=== PATIENT | male | born 1950 | race Caucasian/White ===

== ENCOUNTER 2019-02-15 07:08 | Day surgery (SDC) | payer MEDICARE, BC ==
[~2019-02-15 07:08] MED LIST: Lactated Ringers 1,000 ML IV SCH; Lidocaine 1%/Sod Bicarbonate in NS 8.4% 1 ML Syringe IDERM PRN; Sodium Chloride 0.9% 10 ML Syringe FLUSH PRN
[2019-02-15] MEDS ORDERED: Propofol 200 MG/20 ML SDV ONE ×4 (07:09→09:25)
[2019-02-15] MEDS ORDERED: Lidocaine 1% 4 ML ONE (07:09)
--- NOTE | 2019-02-15 08:12 | PCM.PREANE ---
Preanesthetic Assessment - Procedure Proposed Procedure: Colonoscopy - Anesthesia/Transfusion/Family Hx Anesthesia History: Prior Anesthesia Without Reaction Family History of Anesthesia Reaction: No - Review of Systems General: No Symptoms Pulmonary: Cough (Occasional, mornings. ), Other (COPD, Lung cancer (Surgery scheduled in [place] on February 24) Recently quite smoking, but does admit to having one this morning at 0630. ) Cardiovascular: No Symptoms Gastrointestinal: No Symptoms Neurological: No Symptoms Other: Reports: None - Physical Assessment NPO Status Date: 02/15/19 NPO Status Time: 04:00 Vital Signs: Last Vital Signs Temp 36.6 C 02/15/19 07:25 Pulse 92 02/15/19 07:25 Resp 16 02/15/19 07:25 BP 125/85 02/15/19 07:25 Pulse Ox 97 02/15/19 07:25 Height: 1.73 m Weight: 72.121 kg ASA Class: 3 Mental Status: Alert & Oriented x3 Airway Class: Mallampati = 2 Dentition: Reports: Broken Tooth/Teeth, Missing Tooth/Teeth, Caries Thyro-Mental Finger Breadths: 3 Mouth Opening Finger Breadths: 3 ROM/Head Extension: Full Lungs: Clear to Auscultation, Normal Respiratory Effort, Decreased Breath Sounds (Right side) Cardiovascular: Regular Rate, Regular Rhythm - Allergies Allergies/Adverse Reactions: Allergies Allergy/AdvReac Type Severity Reaction Status Date / Time No Known Allergies Allergy Verified 02/12/19 15:31 - Acknowledgements Anesthesia Type Planned: MAC Pt an Appropriate Candidate for the Planned Anesthesia: Yes Alternatives and Risks of Anesthesia Discussed w Pt/Guardian: Yes Pt/Guardian Understands and Agrees with Anesthesia Plan: Yes PreAnesthesia Questionnaire Cardiovascular History: Reports: None Respiratory History: Reports: COPD Gastrointestinal History: Reports: None Genitourinary History: Reports: Other (See Below) Other Genitourinary History: prostate neoplasm CLINICAL SPECIALIST VASCULAR History: Reports: None Musculoskeletal History: Reports: None Neurological History: Reports: None Psychiatric History: Reports: None Endocrine/Metabolic History: Reports: None Hematologic History: Reports: None Immunologic History: Reports: None Oncologic (Cancer) History: Reports: Lung, Prostate Dermatologic History: Reports: None - Past Surgical History Head Surgeries/Procedures: Reports: None HEENT Surgical History: Reports: Tonsillectomy Cardiovascular Surgical History: Reports: None Respiratory Surgical History: Reports: None GI Surgical History: Reports: Appendectomy Male Surgical History: Reports: Prostatectomy Endocrine Surgical History: Reports: None Neurological Surgical History: Reports: None Musculoskeletal Surgical History: Reports: None Oncologic Surgical History: Reports: None Dermatological Surgical History: Reports: None - SUBSTANCE USE Smoking Status *Q: Current Every Day Smoker Recreational Drug Use History: No - HOME MEDS Home Medications: Home Meds Albuterol [Proventil Neb Soln] 1 dose INH QID PRN 02/12/19 [History] Furosemide 40 mg PO BID 02/12/19 [History] Glycopyrrolate/Formoterol Fum [Bevespi Aerosphere Inhaler] 1 puff INH DAILY [History] Potassium Chloride 20 meq PO DAILY 02/12/19 [History] Potassium Chloride [Klor-Con M20] 40 meq PO QAM 02/12/19 [History] - CURRENT (IN HOUSE) MEDS Current Meds: Current Medications Lactated Ringer's (Ringers, Lactated) 1,000 mls @ 125 mls/hr IV ASDIRECTED ARACELI Stop: 02/15/19 23:00 Lidocaine/Sodium Bicarbonate (Buffered Lidocaine 1% In Ns 8.4%) 0.25 ml IDERM ONETIME PRN PRN Reason: Prior to IV Start Stop: 02/15/19 18:00 Sodium Chloride (Saline Flush) 10 ml FLUSH ASDIRECTED PRN PRN Reason: Keep Vein Open Stop: 02/15/19 18:00 Discontinued Medications Lidocaine HCl (Xylocaine-Mpf 1%) Confirm Administered Dose 4 mls @ as directed .ROUTE .STK-MED ONE Stop: 02/15/19 07:10 Propofol (Diprivan 20 Ml) Confirm Administered Dose 200 mg .ROUTE .STK-MED ONE Stop: 02/15/19 07:10
--- NOTE | 2019-02-15 09:52 | PCM.PRNOTE ---
- Free Text/Narrative Note: Date: 02/15/2019 Procedure: diagnostic colonoscopy Endoscopist: Jamie Martinez MD Findings: several polypoid lesions identified and biopsied- the lesion in question on CT appeared to be an irregular shaped 2.5 cm pedunculated polyp with surrounding small sessile polypoid lesions. Scattered diverticular disease noted. Detailed Report: The patient was taken to the endoscopy suite and placed in left lateral decubitus position. Monitored anesthesia was initiated, and timeout performed. Visual inspection of the anus was normal. Digital rectal exam was unremarkable. The colonoscope was advanced all the way to the cecum. The prep was excellent. On slow withdrawal of the scope, a few polypoid lesions were identified and biopsied. Larger pedunculated lesions were taken with a hot snare. Smaller, sessile lesions were biopsied using the jumbo forceps. In total, 7 specimens were obtained. In the sigmoid colon, 2 larger pedunculated lesions were identified and snare biopsied. The lesion noted on prior CT scan at the rectosigmoid junction was identified, measuring about 2.5 cm in diameter. Was taken in piecemeal fashion using a snare. The base of the lesion was cauterized. Surrounding satellite lesions were noted, subcentimeter in dimension, with sessile appearance. Letter diverticular disease was noted throughout the colon. No significant hemorrhoidal disease. The patient tolerated the procedure well. Jamie Martinez MD General Surgery
--- NOTE | 2019-02-15 09:54 | PCM48HPAN ---
Post Anesthesia Note - EVALUATION WITHIN 48HRS OF ANESTHETIC Vital Signs in Normal Range: Yes Patient Participated in Evaluation: Yes Respiratory Function Stable: Yes Airway Patent: Yes Cardiovascular Function Stable: Yes Hydration Status Stable: Yes Pain Control Satisfactory: Yes Nausea and Vomiting Control Satisfactory: Yes Mental Status Recovered: Yes Vital Signs: Last Vital Signs Temp 36.6 C 02/15/19 07:25 Pulse 92 02/15/19 07:25 Resp 16 02/15/19 07:25 BP 125/85 02/15/19 07:25 Pulse Ox 97 02/15/19 07:25
== END 2019-02-15 10:35 | disposition home or self-care (01) ==
LOC: JD.SDS 07:08
PROVIDERS: ATTEND Surgery
DX: D12.5 Benign neoplasm of sigmoid colon (principal); D12.7 Benign neoplasm of rectosigmoid junction; K63.5 Polyp of colon; J44.9 Chronic obstructive pulmonary disease, unspecified; Z79.899 Other long term (current) drug therapy; Z90.49 Acquired absence of other specified parts of digestive tract; Z87.891 Personal history of nicotine dependence
CPT/HCPCS: 45380; 45385; J2001; J2704; J7120; 00811

== ENCOUNTER 2022-08-21 09:33 | Day surgery (SDC) | payer MEDICARE, BC ==
[2022-08-21] MEDS ORDERED: Sodium Chloride 0.9% 10 ML Syringe FLUSH PRN (10:21)
[2022-08-21] MEDS ORDERED: Propofol 200 MG/20 ML SDV ONE ×2 (10:24→10:58)
[2022-08-21] MEDS ORDERED: Lidocaine 1% 2 ML ONE (10:24)
[2022-08-21] MEDS ORDERED: fentaNYL 100 MCG/2 ML SDV ONE (10:24)
[2022-08-21] MEDS ORDERED: Midazolam 1 MG/ML 2 ML SDV ONE (10:25)
[2022-08-21] MEDS ORDERED: Lactated Ringers 1,000 ML IV SCH (10:30)
[2022-08-21] MEDS ORDERED: Phenylephrine 1% 10 MG/ML SDV ONE (11:16)
[2022-08-21] MEDS ORDERED: Sodium Chloride 0.9% 10 ML Syringe FLUSH SCH (21:00)
== END 2022-08-21 12:55 | disposition home or self-care (01) ==
LOC: JD.SDS 09:33
PROVIDERS: ATTEND Surgery
DX: K62.1 Rectal polyp (principal); K29.50 Unspecified chronic gastritis without bleeding; K31.A0 Gastric intestinal metaplasia, unspecified; K57.30 Diverticulosis of large intestine without perforation or abscess without bleeding; K63.5 Polyp of colon; K22.70 Barrett's esophagus without dysplasia; K29.80 Duodenitis without bleeding; K64.9 Unspecified hemorrhoids; K44.9 Diaphragmatic hernia without obstruction or gangrene; D64.9 Anemia, unspecified; F17.210 Nicotine dependence, cigarettes, uncomplicated; F41.1 Generalized anxiety disorder; E87.1 Hypo-osmolality and hyponatremia; J44.9 Chronic obstructive pulmonary disease, unspecified; Z79.899 Other long term (current) drug therapy; Z79.82 Long term (current) use of aspirin; Z98.890 Other specified postprocedural states; Z79.890 Hormone replacement therapy
CPT/HCPCS: 43239; 45380; J1642; J2250; J2370; J2704; J3010; J7120; J3490